=== PATIENT | female | born 1970 | race Caucasian/White ===

== ENCOUNTER 2019-03-24 13:27 | Inpatient (IN) | payer BC, SELFPAY ==
--- NOTE | 2019-03-24 13:49 | ADMGEN ---
This patient, Olivia Martinez, was admitted to 2 Medical Room 256-. Patient/family oriented to hospital policies and general routines including ID bracelet, bed and alarms, visiting hours, pain management, procedures, bathroom and other care routines, personal items, smoking policy, room service/diet, and visiting hours. Valuables list has been completed. Information on how to activate the Rapid Response Team has been discussed. Patient/Family are encouraged to report perceived risks to care and to ask questions if they do not understand what they are told or what they should do.
[2019-03-24 14:00] VITALS: BP 100/51; PULSE 90; RESP 16; TEMP 36.2; O2SAT 98
--- NOTE | 2019-03-24 15:00 | PM.IMHP ---
H&P: HPI History of Present Illness Chief complaint: Left 2nd toe osteomyelitis Narrative: Olivia Martinez is a 48 year old female who is being directly admitted to the hospitalist service from the emergency department at [facility] for further treatment of left 2nd toe osteomyelitis. Her medical history is significant for PCOS for which she takes metformin, asthma, bipolar disorder, and chronic pain on long-term opiate therapy. She reports a callus that has been present at the tip of her left 2nd toe for many years, however has become progressively thicker and harder. Because of this, 2 weeks ago she attempted to remove the callus by picking at it and using toenail clippers. Apparently the wound bled quite a bit and developed a fluid-filled blister within a week's time. She has popped said blister on 3 occasions within the last week, and was able to express blood and purulence drainage. She has been washing the area and putting bacitracin on it since that time. Erythema and edema developed several days ago, and she was seen by her primary care provider who started her on Bactrim. She took 2 doses yesterday, but became concerned today when this swelling and erythema began to progress and thus she presented to the outside hospital emergency department. Imaging revealed changes of osteomyelitis at the tuft of the left 2nd toe. At the time my evaluation, she describes a severe throbbing pain at the site, rated 7/10. She had a temperature of nearly 101? 2 nights ago, but none since that time. Her appetite has been good and she denies nausea and vomiting. She had 4 loose stools over the past 2 days, which she states was prior to her starting the antibiotic. She has no history of MRSA or other drug resistant organism. Review of Systems Review of Systems: Narrative: Twelve systems were reviewed with pertinent positives and negatives as per HPI. No recent cold or flu symptoms. No chest pain or shortness of breath. Asthma is pretty well controlled. No recent issues with regards to that. No dysuria. Except as documented, all other systems were reviewed and are negative. [facility] Past Medical History Medical History (Updated 03/24/19 @ 19:46 by Morelia Borrego PA-C) Arthritis Asthma Bipolar 1 disorder Dyslipidemia Fibromyalgia PCOD (polycystic ovarian disease) Vitamin D deficiency Surgical History Surgical History (Updated 03/24/19 @ 19:40 by Morelia Borrego PA-C) History of appendectomy History of D&C After a miscarriage. Hx of knee surgery Bilateral knee arthroscopy. Family History Family History Mother Depression High cholesterol Hypertension Diabetes mellitus Father Depression High cholesterol Skin cancer Cerebrovascular accident Hypertension Sibling Lung cancer Social History Social History (Updated 03/24/19 @ 19:41 by Morelia Borrego PA-C) Social History: The patient lives in [place] with her ex-. They have recently gotten re-engaged. 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 she designates Jose Angel Martinez, as her surrogate decision maker and she wishes to be a full code. She has smoked off and on for many years, up to a pack a day. She denies alcohol and drug abuse. Smoking packs per day: 1 Smoking cigarettes per day: 20.0 Smoking status: Current every day smoker Tobacco type: cigarettes Alcohol intake: never Substance use: never Gender identity (if verbalized by the patient): Female Spiritual care concerns: No Agree to blood products: Yes Meds Home Medications and Allergies Home Medications Medication Instructions Recorded Confirmed Type albuterol sulfate 90 mcg INHALATION PRN PRN 03/24/19 03/24/19 History amitriptyline 75 mg PO HS 03/24/19 03/24/19 History duloxetine 60 mg PO BID 03/24/19 03/24/19 History ergocalciferol (vitamin D2) 1,250 mcg WEEKLY 03/24/19 03/24/19 History fluticaso
[2019-03-24 15:29] LABS: Lactic Acid Reflex 2.2 mmol/L (0.7-2.1)
[2019-03-24] MEDS: SODIUM CHLORIDE 0.9% IV 1,000 ML 100 ML IV CONT (15:42)
[2019-03-24 15:51] VITALS: BMI 44.8
[2019-03-24] MEDS: TOPIRAMATE 100 MG TABLET PO (16:45)
[2019-03-24] MEDS: DULOXETINE 60 MG CAPSULE.DR PO (16:45)
[2019-03-24 16:51] LABS: Hemoglobin A1C 5.4 % (<5.7)
--- NOTE | 2019-03-24 17:58 | PM.CNGS ---
Assessment and Plan Assessment and plan (1) Osteomyelitis of second toe of left foot: Code(s): M86.9 - Osteomyelitis, unspecified Status: Acute Assessment and Plan: Patient appears to have evidence of a toe infection with possible underlying osteomyelitis. She has been started on broad-spectrum IV antibiotics. We will continue to watch the toe for any signs of further ischemia or necrosis. She may eventually require 2nd toe amputation if this is not improving. Will recommend elevation of her left foot while in bed, and decreasing pressure to that area while walking. History of Present Illness Consult details Consult date: 03/24/19 Narrative: This is a 48-year-old woman who presented to [facility] this morning with complaints of a left toe wound. She has been complaining of worsening redness and pain to her left 2nd toe for the past 2 weeks. She had seen PCP 03/15 and was prescribed antibiotics, but did not start taking until yesterday. She denies any history of diabetes. She denies any history of peripheral vascular disease. She does state that she dropped a can on her toe about 2 years ago but does not know of this would be related to that. Review of Systems Review of Systems: All systems reviewed & are unremarkable except as noted in HPI and below Eyes: Eyes: Denies change in vision ENT: Denies hearing loss, Denies neck pain and Denies sore throat Cardiovascular: Cardiovascular: Denies chest pain and Denies dyspnea Respiratory: Respiratory: Denies cough, Denies dyspnea and Denies wheezing Genitourinary: Genitourinary: Denies hematuria and Denies dysuria Musculoskeletal: Musculoskeletal: Denies arthralgias, Denies joint swelling and Denies neck pain Integumentary/Breasts: Skin/Breast: Reports as per HPI Allergic/Immunologic: Allergic/Immunologic: Denies wheezing [facility] Past Medical History Medical History Arthritis Asthma Bipolar 1 disorder Dyslipidemia Fibromyalgia PCOD (polycystic ovarian disease) Surgical History Surgical History History of appendectomy History of D&C Hx of knee surgery Family History Family History Mother Depression High cholesterol Hypertension Diabetes mellitus Father Depression High cholesterol Skin cancer Cerebrovascular accident Hypertension Sibling Lung cancer Social History Social History Smoking packs per day: 1 Smoking cigarettes per day: 20.0 Smoking status: Current every day smoker Tobacco type: cigarettes Alcohol intake: never Substance use: never Gender identity (if verbalized by the patient): Female Spiritual care concerns: No Agree to blood products: Yes Meds Home Medications and Allergies Home Medications Medication Instructions Recorded Confirmed Type albuterol sulfate 90 mcg INHALATION PRN PRN 03/24/19 03/24/19 History amitriptyline 75 mg PO HS 03/24/19 03/24/19 History duloxetine 60 mg PO BID 03/24/19 03/24/19 History ergocalciferol (vitamin D2) 1,250 mcg WEEKLY 03/24/19 03/24/19 History fluticasone propionate 50 spray INTRANASAL DAILY PRN 03/24/19 03/24/19 History hydrocodone-acetaminophen 1 tablet PO BID PRN 03/24/19 03/24/19 History levothyroxine 150 mcg PO DAILY 03/24/19 03/24/19 History metformin 1,000 mg BID 03/24/19 03/24/19 History sulfamethoxazole-trimethoprim 800 tablet PO BID 03/24/19 03/24/19 History topiramate 100 mg PO BID 03/24/19 03/24/19 History Allergies Allergy/AdvReac Type Severity Reaction Status Date / Time NSAIDS (Non-Steroidal Allergy Intermediate Verified 06/29/12 15:26 Anti-Inflamma Vital Signs Vital Signs - 24 hr 03/24/19 14:00 Temperature 36.2 C L Pulse Rate 90 Respiratory Rate 16 Blood Pressure 100/51 L Pulse Oximetry 98
[2019-03-24 18:16] LABS: Reflex Lactic Acid Yes or No Add Lactic
[2019-03-24 19:06] LABS: Lactic Acid 1.6 mmol/L (0.7-2.1)
[2019-03-24] MEDS: MORPHINE SULFATE 2 MG/ML INJ IV PUSH (20:28)
[2019-03-24] MEDS: AMITRIPTYLINE HCL 25 MG TABLET 75 MG PO (20:29)
[2019-03-24 22:00] VITALS: BP 116/81; PULSE 82; RESP 16; TEMP 36.1; O2SAT 100
[2019-03-25] MEDS: SODIUM CHLORIDE 0.9% IV 1,000 ML 100 ML IV CONT (03:15)
[2019-03-25] MEDS: LEVOTHYROXINE SODIUM 150 MCG TABLET PO (05:39)
[2019-03-25 05:54] VITALS: BP 106/56; PULSE 83; RESP 16; TEMP 36.1; O2SAT 100
[2019-03-25 06:50] LABS: Hematocrit 38.7 % (37.0-47.0); Hemoglobin 12.1 g/dL (12.0-15.0); Mean Corpuscular HGB Conc 31.3 g/dl (32-36); Mean Corpuscular Hemoglobin 31.4 pg (26-34); Mean Corpuscular Volume 100.5 fl (80-100); Mean Platelet Volume 9.6 fl (7.4-10.4); Platelet Count Result 326 k/mm3 (150-375); Red Blood Count 3.85 M/mm3 (4.2-5.4); Red Cell Distribution Width 13.4 % (11.5-14.5); White Blood Count 10.8 K/mm3 (4.5-10.0)
[2019-03-25 07:06] LABS: Blood Urea Nitrogen 10 mg/dL (7-17); Calcium 8.9 mg/dL (8.4-10.2); Carbon Dioxide 23 mmol/L (22-30); Chloride 105 mmol/L (98-107); Estimated CRCL calculation 78 ml/min; Estimated Glomerular Filt Rate 59; Glucose 93 mg/dL (65-105); Potassium 4.2 mmol/L (3.4-5.0); Sodium 138 mmol/L (137-145)
[2019-03-25] MEDS: TOPIRAMATE 100 MG TABLET PO ×2 (09:08→17:44)
[2019-03-25] MEDS: DULOXETINE 60 MG CAPSULE.DR PO ×2 (09:08→17:44)
--- NOTE | 2019-03-25 11:14 | PM.IMPN ---
Progress Note: A&P Assessment and Plan (1) Sepsis: Code(s): A41.9 - Sepsis, unspecified organism Status: Acute Assessment and Plan: -----Resolved. Present on admission and supported by leukocytosis and lactic acidosis in the setting of infection. Likely d/t osteomyelitits. Blood cultures are pending. vitals stable. Will stop IV fluids as pt is eating and drinking well. (2) Osteomyelitis of second toe of left foot: Code(s): M86.9 - Osteomyelitis, unspecified Status: Acute Assessment and Plan: ------Continue empiric vancomycin and ceftriaxone. Await further recs from sx. Will consult Dr. Paris (3) Cellulitis of second toe of left foot: Code(s): L03.032 - Cellulitis of left toe Status: Acute Assessment and Plan: ------Continue vancomycin and ceftriaxone as above. (4) Asthma: Code(s): J45.909 - Unspecified asthma, uncomplicated Status: Acute Assessment and Plan: -----No acute issues and well controlled Time Spent With Patient Time with patient: 25 - 35 minutes Subjective Date/time seen: 03/25/19 11:14 Interval history: Pt is a 48-year-old female here for osteomyelitis. Patient was seen today and states her toe looks about the same but did have some mild bleeding to it overnight. She says that she is not currently having any fevers, chills, nausea or vomiting. She had many questions about the plan of care which I deferred to surgery team. She is eating and drinking well and denies chest pain and shortness of breath Review of Systems Review of Systems: All systems reviewed & are unremarkable except as noted in HPI and below Exam Narrative: Exam Narrative: General: Well developed well nourished patient resting comfortably in bed in NAD HEENT: normocephalic Neck: supple Neuro: Alert and oriented x4 CV:RRR Resp:CTA Abd: Soft, non distended. No pain to palpation. Positive bowel sounds Extremities: Left foot 2nd phalanx has a small eschar callus at the distal tip of the toe. very scant evidence of bleeding. Eryethema down to the middle of the toe. Objective Data Vital Signs Vital Signs: Vital Signs - 24 hr 03/24/19 14:00 03/24/19 22:00 03/25/19 05:54 Temperature 97.1 F L 96.9 F L 96.9 F L Pulse Rate 90 82 83 Respiratory Rate 16 16 16 Blood Pressure 100/51 L 116/81 106/56 L Pulse Oximetry 98 100 100 Intake/Output Intake/Output: Intake & Output 03/22/19 03/23/19 03/24/19 03/25/19 23:59 23:59 23:59 23:59 Intake Total 690 2299 Output Total 0 2100 Balance 690 199 Meds/Results Medications: Active Medications Generic Name Dose Route Start Last Admin Trade Name Freq PRN Reason Stop Dose Admin Acetaminophen 650 mg 03/24/19 15:38 Tylenol Tablet PO Q6H PRN Mild Pain (1-3) or Fever Hydrocodone Bitart/Acetaminophen 1 tab 03/24/19 15:39 03/25/19 09:07 [place] 7.5-325 Mg PO 1 tab BID PRN Administration Pain 4-10 Albuterol 1 puff 03/24/19 14:34 Proventil Hfa INHALATION PRN PRN Wheezing Amitriptyline HCl 75 mg 03/24/19 21:00 03/24/19 20:29 Elavil PO 75 mg HS BUSTER Administration Duloxetine HCl 60 mg 03/24/19 17:00 03/25/19 09:08 Cymbalta PO 60 mg BID BUSTER Administration Fluticasone Propionate 1 spray 03/24/19 14:50 Flonase 0.05% Nasal [place] NASAL DAILY PRN Allergy Symptoms Ceftriaxone Sodium 2 gm in 100 mls @ 200 mls/hr 03/25/19 12:00 Rocephin 2 Gm/D5w 100 Ml IVPB Q24H BUSTER Sodium Chloride 1,000 mls @ 100 mls/hr 03/24/19 14:50 03/25/19 05:41 Normal Saline Iv IV CONT 100 mls/hr .Q10H BUSTER Infusion Vancomycin HCl 1,750 mg in 500 mls @ 250 mls/hr 03/25/19 08:00 03/25/19 09:09 Vancomycin 1,750 Mg/D5w 500 Ml IVPB 250 mls/hr Q18H BUSTER Administration Levothyroxine Sodium 150 mcg 03/25/19 06:30 03/25/19 05:39 Synthroid PO 150 mcg DAILY@0630 BUSTER Administration Morphine Sulf
[2019-03-25] MEDS: ACETAMINOPHEN 325 MG TABLET 650 MG PO (12:32)
[2019-03-25 14:00] VITALS: BP 126/65; PULSE 73; RESP 14; TEMP 36.4; O2SAT 100
--- NOTE | 2019-03-25 14:54 | PM.PNGS ---
Progress Note: A&P Assessment and Plan (1) Cellulitis of second toe of left foot: Code(s): L03.032 - Cellulitis of left toe Status: Acute Assessment and Plan: Will begin applying silver gel to nail bed of 2nd toe to help with infection. Overall erythema and swelling has improved. She may need superficial debridement if drainage and redness persist. Subjective Subjective Date/Time Seen: 03/25/19 14:54 Still having some pain in her toe. No fevers. Redness improved. Exam Extrem: Ankle/foot/toe images: 1. Erythema improved. Scant bloody drainage at nail bed. Objective Data Vital Signs Vital Signs: Vital Signs - 24 hr 03/24/19 22:00 03/25/19 05:54 Temperature 36.1 C L 36.1 C L Pulse Rate 82 83 Respiratory Rate 16 16 Blood Pressure 116/81 106/56 L Pulse Oximetry 100 100 Intake/Output Intake/Output: Intake & Output 03/22/19 03/23/19 03/24/19 03/25/19 23:59 23:59 23:59 23:59 Intake Total 690 2799 Output Total 0 2100 Balance 690 699 Meds/Results Medications: Active Medications Generic Name Dose Route Start Last Admin Trade Name Freq PRN Reason Stop Dose Admin Acetaminophen 650 mg 03/24/19 15:38 03/25/19 12:32 Tylenol Tablet PO 650 mg Q6H PRN Administration Mild Pain (1-3) or Fever Hydrocodone Bitart/Acetaminophen 1 tab 03/24/19 15:39 03/25/19 09:07 [place] 7.5-325 Mg PO 1 tab BID PRN Administration Pain 4-10 Albuterol 1 puff 03/24/19 14:34 Proventil Hfa INHALATION PRN PRN Wheezing Amitriptyline HCl 75 mg 03/24/19 21:00 03/24/19 20:29 Elavil PO 75 mg HS BUSTER Administration Duloxetine HCl 60 mg 03/24/19 17:00 03/25/19 09:08 Cymbalta PO 60 mg BID BUSTER Administration Fluticasone Propionate 1 spray 03/24/19 14:50 Flonase 0.05% Nasal [place] NASAL DAILY PRN Allergy Symptoms Ceftriaxone Sodium 2 gm in 100 mls @ 200 mls/hr 03/25/19 12:00 03/25/19 12:27 Rocephin 2 Gm/D5w 100 Ml IVPB 200 mls/hr Q24H BUSTER Administration Vancomycin HCl 1,750 mg in 500 mls @ 250 mls/hr 03/25/19 08:00 03/25/19 11:49 Vancomycin 1,750 Mg/D5w 500 Ml IVPB Infused Q18H BUSTER Infusion Levothyroxine Sodium 150 mcg 03/25/19 06:30 03/25/19 05:39 Synthroid PO 150 mcg DAILY@0630 [facility] Administration Morphine Sulfate 2 mg 03/24/19 15:39 03/24/19 20:28 Morphine Sulfate Inj IV PUSH 2 mg Q4H PRN Administration Breakthrough 7-10 AFTER norco Silver Nitrate 1 applic 03/25/19 14:55 Silvergel TOPICAL Q24H [facility] Topiramate 100 mg 03/24/19 17:00 03/25/19 09:08 Topamax PO 100 mg BID BUSTER Administration Labs Labs: Laboratory Results - last 24 hr 03/24/19 03/24/19 03/24/19 15:13 16:31 18:42 WBC RBC Hgb Hct MCV MCH MCHC RDW Plt Count MPV Sodium Potassium Chloride Carbon Dioxide BUN Creatinine Estim Creat Clear Calc Estimated GFR Glucose Hemoglobin A1c 5.4 Lactic Acid 2.2 H 1.6 Calcium 03/25/19 03/25/19 06:25 06:25 WBC 10.8 H RBC 3.85 L Hgb 12.1 Hct 38.7 MCV 100.5 H MCH 31.4 MCHC 31.3 L RDW 13.4 Plt Count 326 MPV 9.6 Sodium 138 Potassium 4.2 Chloride 105 Carbon Dioxide 23 BUN 10 Creatinine 1.00 Estim Creat Clear Calc 78 Estimated GFR 59 Glucose 93 Hemoglobin A1c Lactic Acid Calcium 8.9 Quality VTE Prophylaxis VTE prophylaxis: mechanical ordered
[2019-03-25] MEDS: SILVERGEL (ELTA) 45 ML 1 APPLIC TOPICAL (17:44)
[2019-03-25] MEDS: AMITRIPTYLINE HCL 25 MG TABLET 75 MG PO (20:59)
[2019-03-25] MEDS: MORPHINE SULFATE 2 MG/ML INJ IV PUSH (21:02)
[2019-03-25 21:10] VITALS: BP 116/69; PULSE 72; RESP 16; TEMP 36.1; O2SAT 98
[2019-03-26] MEDS: LEVOTHYROXINE SODIUM 150 MCG TABLET PO (05:52)
[2019-03-26 06:00] VITALS: BP 108/61; PULSE 74; RESP 16; TEMP 36.1; O2SAT 100
--- NOTE | 2019-03-26 08:15 | WPDINFPN2 ---
Progress Note: A&P Assessment and Plan (1) Osteomyelitis of second toe of left foot: Code(s): M86.9 - Osteomyelitis, unspecified Status: Acute Assessment and Plan: L 2nd toe acute OM REC Ctx #3. I think her overall health is best served by distal phalanx amputation without post op antibiotics, but I emphasized that only her surgeon can make that final recommendation. If no surgery, then 4 weeks IV therapy (no guarantee of cure). Subjective Date/time seen: 03/26/19 08:15 Objective Data Vital Signs Vital Signs: Vital Signs - 24 hr 03/25/19 14:00 03/25/19 21:10 03/26/19 06:00 Temperature 36.4 C 36.1 C L 36.1 C L Pulse Rate 73 72 74 Respiratory Rate 14 16 16 Blood Pressure 126/65 116/69 108/61 Pulse Oximetry 100 98 100 Intake/Output Intake/Output: Intake & Output 03/23/19 03/24/19 03/25/19 03/26/19 23:59 23:59 23:59 23:59 Intake Total 690 3949 550 Output Total 0 2850 350 Balance 690 1099 200 Meds/Results Medications: Active Medications Generic Name Dose Route Start Last Admin Trade Name Freq PRN Reason Stop Dose Admin Acetaminophen 650 mg 03/24/19 15:38 03/25/19 12:32 Tylenol Tablet PO 650 mg Q6H PRN Administration Mild Pain (1-3) or Fever Hydrocodone Bitart/Acetaminophen 1 tab 03/24/19 15:39 03/26/19 05:54 [place] 7.5-325 Mg PO 1 tab BID PRN Administration Pain 4-10 Albuterol 1 puff 03/24/19 14:34 Proventil Hfa INHALATION PRN PRN Wheezing Amitriptyline HCl 75 mg 03/24/19 21:00 03/25/19 20:59 Elavil PO 75 mg HS BUSTER Administration Duloxetine HCl 60 mg 03/24/19 17:00 03/25/19 17:44 Cymbalta PO 60 mg BID BUSTER Administration Fluticasone Propionate 1 spray 03/24/19 14:50 Flonase 0.05% Nasal [place] NASAL DAILY PRN Allergy Symptoms Ceftriaxone Sodium 2 gm in 100 mls @ 200 mls/hr 03/25/19 12:00 03/25/19 12:27 Rocephin 2 Gm/D5w 100 Ml IVPB 200 mls/hr Q24H BUSTER Administration Levothyroxine Sodium 150 mcg 03/25/19 06:30 03/26/19 05:52 Synthroid PO 150 mcg DAILY@0630 BUSTER Administration Morphine Sulfate 2 mg 03/24/19 15:39 03/25/19 21:02 Morphine Sulfate Inj IV PUSH 2 mg Q4H PRN Administration Breakthrough 7-10 AFTER norco Silver Nitrate 1 applic 03/25/19 14:55 03/25/19 17:44 Silvergel TOPICAL 1 applic Q24H BUSTER Administration Topiramate 100 mg 03/24/19 17:00 03/25/19 17:44 Topamax PO 100 mg BID BUSTER Administration
[2019-03-26] MEDS: TOPIRAMATE 100 MG TABLET PO ×2 (08:24→17:33)
[2019-03-26] MEDS: DULOXETINE 60 MG CAPSULE.DR PO ×2 (08:24→17:32)
--- NOTE | 2019-03-26 09:25 | PM.IMPN ---
Progress Note: A&P Assessment and Plan (1) Sepsis: Code(s): A41.9 - Sepsis, unspecified organism Status: Acute Assessment and Plan: -----Resolved. Present on admission and supported by leukocytosis and lactic acidosis in the setting of infection. Likely d/t osteomyelitits. Blood cultures are NGTD. vitals stable. (2) Osteomyelitis of second toe of left foot: Code(s): M86.9 - Osteomyelitis, unspecified Status: Acute Assessment and Plan: ------Continue empiric vancomycin and ceftriaxone. Await further recs from sx. (3) Cellulitis of second toe of left foot: Code(s): L03.032 - Cellulitis of left toe Status: Acute Assessment and Plan: ------Continue vancomycin and ceftriaxone as above. (4) Asthma: Code(s): J45.909 - Unspecified asthma, uncomplicated Status: Acute Assessment and Plan: -----No acute issues and well controlled Subjective Date/time seen: 03/26/19 09:25 Interval history: Pt is a 48-year-old female here for osteomyelitis. Patient was seen today and states her toe is hurting a 7/10 but is getting better with the pain meds she took prior to my exam. Overall she is feeling good. Pt denies CP, SOB, fevers, n/v, or chills. Exam Narrative: Exam Narrative: General: Well developed well nourished patient resting comfortably in bed in NAD HEENT: normocephalic Neck: supple Neuro: Alert and oriented x4 CV:RRR Resp:CTA Abd: Soft, non distended. No pain to palpation. Positive bowel sounds Extremities: Left foot 2nd phalanx has a small eschar callus at the distal tip of the toe. Eryethema down to the middle of the toe. Objective Data Vital Signs Vital Signs: Vital Signs - 24 hr 03/25/19 14:00 03/25/19 21:10 03/26/19 06:00 Temperature 97.6 F 96.9 F L 96.9 F L Pulse Rate 73 72 74 Respiratory Rate 14 16 16 Blood Pressure 126/65 116/69 108/61 Pulse Oximetry 100 98 100 Intake/Output Intake/Output: Intake & Output 03/23/19 03/24/19 03/25/1903/26/20 23:59 23:59 23:59 23:59 Intake Total 690 3949 910 Output Total 0 2850 350 Balance 690 1099 560 Meds/Results Medications: Active Medications Generic Name Dose Route Start Last Admin Trade Name Freq PRN Reason Stop Dose Admin Acetaminophen 650 mg 03/24/19 15:38 03/25/19 12:32 Tylenol Tablet PO 650 mg Q6H PRN Administration Mild Pain (1-3) or Fever Hydrocodone Bitart/Acetaminophen 1 tab 03/24/19 15:39 03/26/19 05:54 [place] 7.5-325 Mg PO 1 tab BID PRN Administration Pain 4-10 Albuterol 1 puff 03/24/19 14:34 Proventil Hfa INHALATION PRN PRN Wheezing Amitriptyline HCl 75 mg 03/24/19 21:00 03/25/19 20:59 Elavil PO 75 mg HS BUSTER Administration Duloxetine HCl 60 mg 03/24/19 17:00 03/26/19 08:24 Cymbalta PO 60 mg BID BUSTER Administration Fluticasone Propionate 1 spray 03/24/19 14:50 Flonase 0.05% Nasal [place] NASAL DAILY PRN Allergy Symptoms Ceftriaxone Sodium 2 gm in 100 mls @ 200 mls/hr 03/25/19 12:00 03/25/19 12:27 Rocephin 2 Gm/D5w 100 Ml IVPB 200 mls/hr Q24H BUSTER Administration Levothyroxine Sodium 150 mcg 03/25/19 06:30 03/26/19 05:52 Synthroid PO 150 mcg DAILY@0630 BUSTER Administration Morphine Sulfate 2 mg 03/24/19 15:39 03/25/19 21:02 Morphine Sulfate Inj IV PUSH 2 mg Q4H PRN Administration [place] 7-10 AFTER norco Silver Nitrate 1 applic 03/25/19 14:55 03/25/19 17:44 Silvergel TOPICAL 1 applic Q24H BUSTER Administration Topiramate 100 mg 03/24/19 17:00 03/26/19 08:24 Topamax PO 100 mg BID BUSTER Administration Quality VTE Prophylaxis VTE prophylaxis: mechanical ordered
[2019-03-26 09:54] LABS: Blood Urea Nitrogen 10 mg/dL (7-17); Calcium 9.3 mg/dL (8.4-10.2); Carbon Dioxide 23 mmol/L (22-30); Chloride 103 mmol/L (98-107); Estimated CRCL calculation 86 ml/min; Estimated Glomerular Filt Rate > 60; Glucose 153 mg/dL (65-105); Potassium 3.4 mmol/L (3.4-5.0); Sodium 137 mmol/L (137-145)
[2019-03-26 11:01] LABS: Folic Acid 10.7 ng/mL (2.76->20)
--- NOTE | 2019-03-26 11:43 | PM.PNGS ---
Progress Note: A&P Assessment and Plan (1) Osteomyelitis of second toe of left foot: Code(s): M86.9 - Osteomyelitis, unspecified Status: Acute Assessment and Plan: Patient clinically appears to be improving, but still has some tenderness and erythema at the tip of her toe. She would benefit from podiatry evaluation for possible debridement or partial toe amputation. Will continue silver gel dressing changes daily and ask podiatry to evaluate patient Wednesday morning. (2) Cellulitis of second toe of left foot: Code(s): L03.032 - Cellulitis of left toe Status: Acute Subjective Subjective Date/Time Seen: 03/26/19 11:43 Patient is still having pain had tip of toe when palpated. Redness improving. Denies fevers or pain extending up foot proximally. Exam Extrem: Ankle/foot/toe images: 1. Erythema at tip of 2nd toe. Minimal bloody drainage. Objective Data Vital Signs Vital Signs: Vital Signs - 24 hr 03/25/19 14:00 03/25/19 21:10 03/26/19 06:00 Temperature 36.4 C 36.1 C L 36.1 C L Pulse Rate 73 72 74 Respiratory Rate 14 16 16 Blood Pressure 126/65 116/69 108/61 Pulse Oximetry 100 98 100 Intake/Output Intake/Output: Intake & Output 03/23/19 03/24/19 03/25/19 03/26/19 23:59 23:59 23:59 23:59 Intake Total 690 3949 910 Output Total 0 2850 350 Balance 690 1099 560 Meds/Results Medications: Active Medications Generic Name Dose Route Start Last Admin Trade Name Freq PRN Reason Stop Dose Admin Acetaminophen 650 mg 03/24/19 15:38 03/25/19 12:32 Tylenol Tablet PO 650 mg Q6H PRN Administration Mild Pain (1-3) or Fever Hydrocodone Bitart/Acetaminophen 1 tab 03/24/19 15:39 03/26/19 05:54 [place] 7.5-325 Mg PO 1 tab BID PRN Administration Pain 4-10 Albuterol 1 puff 03/24/19 14:34 Proventil Hfa INHALATION PRN PRN Wheezing Amitriptyline HCl 75 mg 03/24/19 21:00 03/25/19 20:59 Elavil PO 75 mg HS BUSTER Administration Duloxetine HCl 60 mg 03/24/19 17:00 03/26/19 08:24 Cymbalta PO 60 mg BID BUSTER Administration Fluticasone Propionate 1 spray 03/24/19 14:50 Flonase 0.05% Nasal [place] NASAL DAILY PRN Allergy Symptoms Ceftriaxone Sodium 2 gm in 100 mls @ 200 mls/hr 03/25/19 12:00 03/25/19 12:27 Rocephin 2 Gm/D5w 100 Ml IVPB 200 mls/hr Q24H BUSTER Administration Levothyroxine Sodium 150 mcg 03/25/19 06:30 03/26/19 05:52 Synthroid PO 150 mcg DAILY@0630 [facility] Administration Morphine Sulfate 2 mg 03/24/19 15:39 03/25/19 21:02 Morphine Sulfate Inj IV PUSH 2 mg Q4H PRN Administration [place] 7-10 AFTER norco Silver Nitrate 1 applic 03/25/19 14:55 03/25/19 17:44 Silvergel TOPICAL 1 applic Q24H BUSTER Administration Topiramate 100 mg 03/24/19 17:00 03/26/19 08:24 Topamax PO 100 mg BID BUSTER Administration Labs Labs: Laboratory Results - last 24 hr 03/26/19 09:33 Sodium 137 Potassium 3.4 Chloride 103 Carbon Dioxide 23 BUN 10 Creatinine 0.90 Estim Creat Clear Calc 86 Estimated GFR > 60 Glucose 153 H Calcium 9.3 Vitamin B12 245.0 Folate 10.7 Quality VTE Prophylaxis VTE prophylaxis: mechanical ordered
[2019-03-26] MEDS: POTASSIUM CHLORIDE 20 MEQ TABLET 40 MEQ PO (12:18)
[2019-03-26 14:00] VITALS: BP 113/56; PULSE 81; RESP 16; TEMP 36.4; O2SAT 98
[2019-03-26] MEDS: SILVERGEL (ELTA) 45 ML 1 APPLIC TOPICAL (14:49)
[2019-03-26] MEDS: CYANOCOBALAMIN INJ 1,000 MCG/ML VIAL 1000 MCG IM (18:33)
[2019-03-26 20:00] VITALS: PULSE 81; RESP 16; O2SAT 98
[2019-03-26] MEDS: AMITRIPTYLINE HCL 25 MG TABLET 75 MG PO (20:28)
[2019-03-26 22:52] VITALS: BP 138/77; PULSE 77; RESP 16; TEMP 36.8; O2SAT 99
[2019-03-27] MEDS: LEVOTHYROXINE SODIUM 150 MCG TABLET PO (06:00)
[2019-03-27] MEDS: MORPHINE SULFATE 2 MG/ML INJ IV PUSH ×2 (06:05→21:59)
[2019-03-27 06:11] VITALS: BP 124/67; PULSE 87; RESP 18; TEMP 37; O2SAT 99
[2019-03-27 06:29] LABS: Hematocrit 41.1 % (37.0-47.0); Hemoglobin 13.1 g/dL (12.0-15.0); Mean Corpuscular HGB Conc 31.9 g/dl (32-36); Mean Corpuscular Hemoglobin 31.7 pg (26-34); Mean Corpuscular Volume 99.5 fl (80-100); Mean Platelet Volume 9.6 fl (7.4-10.4); Platelet Count Result 370 k/mm3 (150-375); Red Blood Count 4.13 M/mm3 (4.2-5.4); Red Cell Distribution Width 13.3 % (11.5-14.5); White Blood Count 11.2 K/mm3 (4.5-10.0)
[2019-03-27 06:39] LABS: Blood Urea Nitrogen 11 mg/dL (7-17); CRP 0.8 mg/dL (<1.0); Calcium 9.6 mg/dL (8.4-10.2); Carbon Dioxide 21 mmol/L (22-30); Chloride 108 mmol/L (98-107); Estimated CRCL calculation 96 ml/min; Estimated Glomerular Filt Rate > 60; Glucose 83 mg/dL (65-105); Sodium 139 mmol/L (137-145)
--- NOTE | 2019-03-27 06:54 | CONS_ITS ---
DATE OF CONSULTATION: 03/26/2019 REASON FOR CONSULTATION: Left second toe osteomyelitis. 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 She dropped an object on her toe about 2 years ago and since then has had callus over the tip of the toe, on approximately three occasions she has peeled the callus off, about 2 weeks prior to admission she developed new onset of redness of the second toe, drainage and underlying ulcer below the callus. She saw her primary care physician, who gave her trimethoprim sulfa, which had no effect on her illness. She then developed redness over the dorsum of the foot extending into the anterior ankle. She presented to an outside emergency room, and then was transferred here. She has been given ceftriaxone, vancomycin day 3, and consultation requested. No previous vascular compromise surgery, major trauma, prior x-rays. She felt warm at home, but never took her temperature. No rigors or night sweats. ALLERGIES: NONSTEROIDALS EXACERBATE HER ASTHMA. HABITS: One pack per day smoker in the last month intermittent previously. No alcohol. PRESENT MEDICATIONS: No immunosuppressants. PAST MEDICAL HISTORY: Knee surgery, D and C, appendectomy, PCO and thus on the on the metformin, vitamin D deficiency, fibromyalgia, hyperlipidemia, bipolar disorder, asthma, and arthritis. REVIEW OF SYSTEMS: Constitutional, musculoskeletal, skin, respiratory, GI, otherwise negative. FAMILY HISTORY: Not pertinent to her present illness. SOCIAL HISTORY: She does not work outside the home. Lives with her ex-. PHYSICAL EXAMINATION: GENERAL: This is a female, who appears older than her actual age. No acute distress. VITAL SIGNS: T-max 36.9 since arrival, 108/61, 74, 16, 100% room air. SKIN: No generalized rashes. Warm and dry. EENT: Conjunctivae are normal. Oropharynx, oral mucosa normal. NECK: Without meningismus or mass. LUNGS: Clear to auscultation and percussion. CARDIAC: Regular rate and rhythm without murmurs or gallops. Dorsalis pedis and posterior tibial pulses 2+. ABDOMEN: Morbidly obese, nontender, nondistended. EXTREMITIES: She has no erythema over the foot. Her left 2nd toe is erythematous over the middle and distal phalanges. She has an ulcerated callus over the tip of the toe. No purulence. There is minimal discharge on the dressing. Nontender. Remainder of the foot without erythema or warmth, abnormal contour. She has a hammertoe deformity of the second toe. RADIOLOGY: I personally reviewed her toe x-ray, which shows erosion of the distal phalanx. Radiologist interpretation also noted. LABORATORY DATA: Blood cultures are no growth so far. White count 10.8, was about 16 at outside hospital. Hemoglobin 12.1, platelets are 326. Chemistry panel is normal. Hemoglobin A1c 5.4%. CRP 2.6. ASSESSMENT: 1. Acute osteomyelitis left second toe, other explanations for present illness such as gouty arthritis are unlikely. Cutaneous amy are suspected, MRSA is very unlikely. 2. Morbid obesity. 3. Tobacco abuse, I counseled her on tobacco cessation. Recommendations, ceftriaxone monotherapy, day 3. 4. I think her intermediate and long-term health is best served by distal phalanx amputation, but I have emphasized to her that only her surgeon can make that decision after speaking with her. 5. If no operation, then 4 weeks of ceftriaxone once daily anticipated, no guarantee of cure. Thank you very much for asking me to see her. AGUSTIN SIERRA M.D. B[employer]ILY INJURY ADJUSTER BODILY INJURY ADJUSTER D I Job #: [id number]
[2019-03-27] MEDS: CYANOCOBALAMIN 1,000 MCG TABLET 1000 MCG PO (08:15)
[2019-03-27] MEDS: TOPIRAMATE 100 MG TABLET PO ×2 (08:15→16:46)
[2019-03-27] MEDS: DULOXETINE 60 MG CAPSULE.DR PO ×2 (08:15→16:46)
--- NOTE | 2019-03-27 11:44 | WPDINFPN2 ---
Progress Note: A&P Assessment and Plan (1) Osteomyelitis of second toe of left foot: Code(s): M86.9 - Osteomyelitis, unspecified Status: Acute Assessment and Plan: 1. L 2nd toe acute OM. Pain worse but exam without new abnormalities. BCs ngsf 2. PCOS, on metformin, no DM REC Ctx #4, continue. Podiatry to see. Analgesics. I favor distal phalanx amputation. Subjective Date/time seen: 03/27/19 11:44 Interval history: new pain over middle phalanx. No chills, diarrhea, rash Exam Narrative: Exam Narrative: afebrile Const: General: no acute distress Eyes: General: appearance normal, both eyes and all related structures Resp: Effort & Inspection: normal respiratory effort Auscultation: clear to auscultation bilaterally Cardio: Rate: regular rate Rhythm: regular rhythm Heart sounds: no gallops and no murmurs Other: pulses 2+ PT and DP bilaterally GI: Inspection: non-distended GI Palp: Yes Soft to palpation and No Tenderness to palpation present (GI) Skin: General skin exam: normal color and no rashes or lesions noted Extrem: Other: left distal phalanx erythema and edema as before. Middle no abnormalities including no tenderness. Distal tip with crusted ulcer as before. No drainage Objective Data Vital Signs Vital Signs: Vital Signs - 24 hr 03/26/19 14:00 03/26/19 20:00 03/26/19 22:52 Temperature 36.4 C 36.8 C Pulse Rate 81 81 77 Respiratory Rate 16 16 16 Blood Pressure 113/56 L 138/77 Pulse Oximetry 98 98 99 03/27/19 06:11 Temperature 37.0 C Pulse Rate 87 Respiratory Rate 18 Blood Pressure 124/67 Pulse Oximetry 99 Intake/Output Intake/Output: Intake & Output 03/24/19 03/25/19 03/26/19 03/27/19 23:59 23:59 23:59 23:59 Intake Total 690 4049 1920 288 Output Total 0 2850 350 Balance 690 1199 1570 288 Meds/Results Medications: Active Medications Generic Name Dose Route Start Last Admin Trade Name Freq PRN Reason Stop Dose Admin Acetaminophen 650 mg 03/24/19 15:38 03/25/19 12:32 Tylenol Tablet PO 650 mg Q6H PRN Administration Mild Pain (1-3) or Fever Hydrocodone Bitart/Acetaminophen 1 tab 03/24/19 15:39 03/27/19 11:00 [place] 7.5-325 Mg PO 1 tab BID PRN Administration Pain 4-10 Albuterol 1 puff 03/24/19 14:34 Proventil Hfa INHALATION PRN PRN Wheezing Amitriptyline HCl 75 mg 03/24/19 21:00 03/26/19 20:28 Elavil PO 75 mg HS BUSTER Administration Artificial Tears 1 drop 03/26/19 12:25 03/26/19 14:49 Artificial Tears EACH EYE 1 drop QID PRN Administration Dry Eye(s) Cyanocobalamin 1,000 mcg 03/27/19 09:00 03/27/19 08:15 Vitamin B-12 Tab PO 1,000 mcg QAM BUSTER Administration Duloxetine HCl 60 mg 03/24/19 17:00 03/27/19 08:15 Cymbalta PO 60 mg BID BUSTER Administration Fluticasone Propionate 1 spray 03/24/19 14:50 Flonase 0.05% Nasal [place] NASAL DAILY PRN Allergy Symptoms Ceftriaxone Sodium 2 gm in 100 mls @ 200 mls/hr 03/25/19 12:00 03/26/19 12:59 Rocephin 2 Gm/D5w 100 Ml IVPB Infused Q24H BUSTER Infusion Levothyroxine Sodium 150 mcg 03/25/19 06:30 03/27/19 06:00 Synthroid PO 150 mcg DAILY@0630 BUSTER Administration Morphine Sulfate 2 mg 03/24/19 15:39 03/27/19 06:05 Morphine Sulfate Inj IV PUSH 2 mg Q4H PRN Administration Breakthrough 7-10 AFTER norco Silver Nitrate 1 applic 03/25/19 14:55 03/26/19 14:49 Silvergel TOPICAL 1 applic Q24H BUSTER Administration Topiramate 100 mg 03/24/19 17:00 03/27/19 08:15 Topamax PO 100 mg BID BUSTER Administration Labs Labs: Laboratory Results - last 24 hr 03/27/19 03/27/19 05:24 05:24 WBC 11.2 H RBC 4.13 L Hgb 13.1 Hct 41.1 MCV 99.5 MCH 31.7 MCHC 31.9 L RDW 13.3 Plt Count 370 MPV 9.6 Sodium 139 Potassium 4.0 Chloride 108 H Carbon Dioxide 21 L BUN 11 Creatinine 0.80 Estim Creat Clear Calc 96 Estimated GFR > 60 Glu
--- NOTE | 2019-03-27 12:03 | PM.PNGS ---
Progress Note: A&P Assessment and Plan (1) Osteomyelitis of second toe of left foot: Code(s): M86.9 - Osteomyelitis, unspecified Status: Acute Assessment and Plan: Patient clinically appears to be improving, but still has some tenderness and erythema at the tip of her toe. Continue IV antibiotics per ID and local wound care. Consulted Ortho today to evaluate for possible debridement or partial toe amputation. ID's recommendations noted and appreciated. (2) Cellulitis of second toe of left foot: Code(s): L03.032 - Cellulitis of left toe Status: Acute Additional Plan Discussed patient's case and plan of care with Dr. Osman. Subjective Subjective Date/Time Seen: 03/27/19 11:20 Patient reports: still having pain and afebrile Interval history: Patient seen and examined. Still having pain in her left 2nd toe and feels the pain is moving proximally down her toe. Pain radiates into her midfoot. Afebrile and WBC 11,000 this morning. No other complaints at this time. Review of Systems Review of Systems: All systems reviewed & are unremarkable except as noted in HPI and below Exam Const: General: alert; No acute distress Orientation/consciousness: patient oriented x3 Extrem: General: capillary refill normal Ankle/foot/toe images: 1. Small dry eschar or scab over the distal tip of the second toe. No drainage noted from this area today. Surrounding erythema extending proximally down the toe but does not extend to the foot. Tenderness of entire toe. Other: Strong DP and PT pulses. Good capillary refill. Objective Data Vital Signs Vital Signs: Vital Signs - 24 hr 03/26/19 14:00 03/26/19 20:00 03/26/19 22:52 Temperature 36.4 C 36.8 C Pulse Rate 81 81 77 Respiratory Rate 16 16 16 Blood Pressure 113/56 L 138/77 Pulse Oximetry 98 98 99 03/27/19 06:11 Temperature 37.0 C Pulse Rate 87 Respiratory Rate 18 Blood Pressure 124/67 Pulse Oximetry 99 Intake/Output Intake/Output: Intake & Output 03/24/19 03/25/19 03/26/19 03/27/19 23:59 23:59 23:59 23:59 Intake Total 690 4049 1920 288 Output Total 0 2850 350 Balance 690 1199 1570 288 Meds/Results Medications: Active Medications Generic Name Dose Route Start Last Admin Trade Name Freq PRN Reason Stop Dose Admin Acetaminophen 650 mg 03/24/19 15:38 03/25/19 12:32 Tylenol Tablet PO 650 mg Q6H PRN Administration Mild Pain (1-3) or Fever Hydrocodone Bitart/Acetaminophen 1 tab 03/27/19 12:00 [place] 5-325 Mg PO Q6H PRN Pain Rated 4-6 Albuterol 1 puff 03/24/19 14:34 Proventil Hfa INHALATION PRN PRN Wheezing Amitriptyline HCl 75 mg 03/24/19 21:00 03/26/19 20:28 Elavil PO 75 mg HS BUSTER Administration Artificial Tears 1 drop 03/26/19 12:25 03/26/19 14:49 Artificial Tears EACH EYE 1 drop QID PRN Administration Dry Eye(s) Cyanocobalamin 1,000 mcg 03/27/19 09:00 03/27/19 08:15 Vitamin B-12 Tab PO 1,000 mcg QAM BUSTER Administration Duloxetine HCl 60 mg 03/24/19 17:00 03/27/19 08:15 Cymbalta PO 60 mg BID BUSTER Administration Fluticasone Propionate 1 spray 03/24/19 14:50 Flonase 0.05% Nasal [place] NASAL DAILY PRN Allergy Symptoms Ceftriaxone Sodium 2 gm in 100 mls @ 200 mls/hr 03/25/19 12:00 03/26/19 12:59 Rocephin 2 Gm/D5w 100 Ml IVPB Infused Q24H BUSTER Infusion Levothyroxine Sodium 150 mcg 03/25/19 06:30 03/27/19 06:00 Synthroid PO 150 mcg DAILY@0630 BUSTER Administration Morphine Sulfate 2 mg 03/24/19 15:39 03/27/19 06:05 Morphine Sulfate Inj IV PUSH 2 mg Q4H PRN Administration Breakthrough 7-10 AFTER norco Silver Nitrate 1 applic 03/25/19 14:55 03/26/19 14:49 Silvergel TOPICAL 1 applic Q24H BUSTER Administration Topiramate 100 mg 03/24/19 17:00 03/27/19 08:15 Topamax PO 100 mg BID BUSTER Administration Labs Labs: Laboratory Results - last 24 hr
[2019-03-27 14:00] VITALS: BP 117/77; PULSE 86; RESP 15; TEMP 36.7; O2SAT 100
--- NOTE | 2019-03-27 14:55 | PM.CNOR ---
Assessment and Plan Assessment and plan (1) Osteomyelitis of second toe of left foot: Code(s): M86.9 - Osteomyelitis, unspecified Status: Acute Assessment and Plan: Left 2nd toe deformity with chronic ulceration and callus state. Neuropathy of unknown etiology contributing to infection and risk. Nonhealing ulcer now with osteomyelitis of the distal phalanx. Agree with Dr. Paris is a evaluation and assessment and options for treatment including long-term antibiotics versus surgical debridement. Discussed nonoperative and operative treatment options with the patient. Risks and benefits of each as well as alternatives were reviewed. All of the patient's questions were answered. The risks of surgery reviewed including but not limited to: Neurovascular damage, wound complication, infection, blood clot, pulmonary embolus, stroke, myocardial infarction, and anesthetic risks up to and including . Continued pain and possible dysfunction were explained. Specific risks of the procedure including later recurrence of deformity. No guarantees were offered. If complications occur, the patient understands the need for further treatment, possible further surgery. Patient verbalizes understanding and wishes to proceed. PLAN: Left 2nd toe amputation. (2) Cellulitis of second toe of left foot: Code(s): L03.032 - Cellulitis of left toe Status: Acute Assessment and Plan: Improved with intravenous antibiotics. (3) Hammertoe of left foot: Code(s): M20.42 - Other hammer toe(s) (acquired), left foot Status: Chronic Assessment and Plan: Discussed with patient. Need to proceed with treatment for the infection 1st. Follow-up to see if she will need further treatment for the hammertoe deformity. (4) Hammertoe of right foot: Code(s): M20.41 - Other hammer toe(s) (acquired), right foot Status: Chronic Assessment and Plan: Continue with daily skin evaluations. Discussed with patient operative and non operative treatment. We will have to wait on operative treatment until her infection has resolved. (5) Peripheral neuropathy: Code(s): G62.9 - Polyneuropathy, unspecified Status: Acute History of Present Illness HPI Consult date: 03/27/19 Requesting physician: Shay Osman DO Consult reason: other ( left 2nd toe infection) Chief complaint: Left 2nd toe osteomyelitis Narrative: 48-year-old female with chronic callus formation and deformity of the left 2nd toe. Patient intermittently trims callus on her home. Most recent time noted ulcer under the callus and redness and swelling increased pain 2nd toe. Seen at outside emergency room and transferred here for further care. Started on intravenous antibiotics. Patient complains of pain at the 2nd toe. Increased pain with motion of the toe. Denies fever or chills. Denies problems eating or voiding while at home. Was started on oral antibiotics 1 day prior to admission. Patient has had several episodes of callus formation and removal with subsequent local infections treated previously without surgery. Episodes cause patient to have to be off for for foot and unable to perform her daily living activity. Also associated with significant pain. She has not been able to get the toe to completely heal up over the past 2 years. Problems began when she dropped a heavy object on the toe at that time. Review of Systems Constitutional: Constitutional: Denies chills and Denies fever(s) Eyes: Eyes: Denies change in vision and Denies photophobia ENT: Denies dysphagia, Denies nasal congestion and Denies sore throat Cardiovascular: Cardiovascular: Denies chest pain and Denies radiating jaw, neck or arm pain Respiratory: Respiratory: Denies cough, Denies dyspnea, Reports dyspnea on exertion and Denies wheezing Gastrointestinal: Gastrointestinal: Denies nausea and Denies vomiting Musculoskeletal: Musculoskeletal:
--- NOTE | 2019-03-27 15:28 | PM.IMPN ---
Progress Note: A&P Assessment and Plan (1) Sepsis: Code(s): A41.9 - Sepsis, unspecified organism Status: Acute Assessment and Plan: -----Resolved. Present on admission and supported by leukocytosis and lactic acidosis in the setting of infection. Likely d/t osteomyelitits. Blood cultures are NGTD. vitals stable. (2) Osteomyelitis of second toe of left foot: Code(s): M86.9 - Osteomyelitis, unspecified Status: Acute Assessment and Plan: ------Continue ceftriaxone. Plan for sx in the near future by Dr. [place]. (3) Cellulitis of second toe of left foot: Code(s): L03.032 - Cellulitis of left toe Status: Acute Assessment and Plan: ------Continue ceftiraxone--improving. (4) Asthma: Code(s): J45.909 - Unspecified asthma, uncomplicated Status: Acute Assessment and Plan: -----No acute issues and well controlled Subjective Date/time seen: 03/27/19 15:28 Interval history: Pt is a 48-year-old female here for osteomyelitis. Patient was seen today and states her toe is hurting and the pain meds don't last very long. She feels comfortable at this time. She has not had a BM since being here. Overall she is feeling good. Pt denies CP, SOB, fevers, n/v, or chills. Exam Narrative: Exam Narrative: General: Well developed well nourished patient resting comfortably in bed in NAD HEENT: normocephalic Neck: supple Neuro: Alert and oriented x4 CV:RRR Resp:CTA Abd: Soft, non distended. No pain to palpation. Positive bowel sounds Extremities: Left foot 2nd phalanx has a small eschar callus at the distal tip of the toe. Eryethema down to the middle of the toe. Objective Data Vital Signs Vital Signs: Vital Signs - 24 hr 03/26/19 20:00 03/26/19 22:52 03/27/19 06:11 Temperature 98.3 F 98.6 F Pulse Rate 81 77 87 Respiratory Rate 16 16 18 Blood Pressure 138/77 124/67 Pulse Oximetry 98 99 99 03/27/19 14:00 Temperature 98.1 F Pulse Rate 86 Respiratory Rate 15 Blood Pressure 117/77 Pulse Oximetry 100 Intake/Output Intake/Output: Intake & Output 03/24/19 03/25/19 03/26/19 03/27/19 23:59 23:59 23:59 23:59 Intake Total 690 4049 1920 628 Output Total 0 2850 350 Balance 690 1199 1570 628 Meds/Results Medications: Active Medications Generic Name Dose Route Start Last Admin Trade Name Freq PRN Reason Stop Dose Admin Acetaminophen 650 mg 03/24/19 15:38 03/25/19 12:32 Tylenol Tablet PO 650 mg Q6H PRN Administration Mild Pain (1-3) or Fever Hydrocodone Bitart/Acetaminophen 1 tab 03/27/19 12:00 [place] 5-325 Mg PO Q6H PRN Pain Rated 4-6 Albuterol 1 puff 03/24/19 14:34 Proventil Hfa INHALATION PRN PRN Wheezing Amitriptyline HCl 75 mg 03/24/19 21:00 03/26/19 20:28 Elavil PO 75 mg HS BUSTER Administration Artificial Tears 1 drop 03/26/19 12:25 03/26/19 14:49 Artificial Tears EACH EYE 1 drop QID PRN Administration Dry Eye(s) Cyanocobalamin 1,000 mcg 03/27/19 09:00 03/27/19 08:15 Vitamin B-12 Tab PO 1,000 mcg QAM BUSTER Administration Duloxetine HCl 60 mg 03/24/19 17:00 03/27/19 08:15 Cymbalta PO 60 mg BID BUSTER Administration Fluticasone Propionate 1 spray 03/24/19 14:50 Flonase 0.05% Nasal [place] NASAL DAILY PRN Allergy Symptoms Ceftriaxone Sodium 2 gm in 100 mls @ 200 mls/hr 03/25/19 12:00 03/27/19 12:45 Rocephin 2 Gm/D5w 100 Ml IVPB Infused Q24H BUSTER Infusion Levothyroxine Sodium 150 mcg 03/25/19 06:30 03/27/19 06:00 Synthroid PO 150 mcg DAILY@0630 BUSTER Administration Morphine Sulfate 2 mg 03/24/19 15:39 03/27/19 06:05 Morphine Sulfate Inj IV PUSH 2 mg Q4H PRN Administration [place] 7-10 AFTER norco Silver Nitrate 1 applic 03/25/19 14:55 03/26/19 14:49 Silvergel TOPICAL 1 applic Q24H BUSTER Administration Topiramate 100 mg 03/24/19 17:00 03/27/19 08:
[2019-03-27] MEDS: SILVERGEL (ELTA) 45 ML 1 APPLIC TOPICAL (15:51)
[2019-03-27] MEDS: polyethylene glycoL 3350 17 GM POWD.PACK PO (15:51)
[2019-03-27 20:00] VITALS: PULSE 86; RESP 15; O2SAT 100
[2019-03-27] MEDS: AMITRIPTYLINE HCL 25 MG TABLET 75 MG PO (20:04)
[2019-03-27 22:00] VITALS: BP 101/67; PULSE 81; RESP 20; TEMP 36.5; O2SAT 98
[2019-03-28] VITALS (14 sets, daily range): BP systolic 85–124; BP diastolic 51–80; PULSE 17–85; RESP 16–99; TEMP 36.2–36.8; O2SAT 69–100
[2019-03-28] MEDS: LEVOTHYROXINE SODIUM 150 MCG TABLET PO (05:08)
[2019-03-28 05:38] LABS: Hematocrit 42.5 % (37.0-47.0); Hemoglobin 13.4 g/dL (12.0-15.0); Mean Corpuscular HGB Conc 31.5 g/dl (32-36); Mean Corpuscular Hemoglobin 31.2 pg (26-34); Mean Corpuscular Volume 98.8 fl (80-100); Mean Platelet Volume 9.2 fl (7.4-10.4); Platelet Count Result 394 k/mm3 (150-375); Red Cell Distribution Width 13.2 % (11.5-14.5)
[2019-03-28 05:41] LABS: INR 0.9; Prothrombin Time 11.6 Seconds (11.1-14.7)
[2019-03-28 05:42] LABS: Partial Thromboplastin Time 26.7 SECONDS (22.3-36.8)
[2019-03-28 06:39] LABS: Alanine Aminotransferase 17 U/L (4-35); Albumin Level 4.2 g/dL (3.5-5.1); Alkaline Phosphatase 99 U/L (38-126); Aspartate Amino Transferase 24 U/L (14-36); Bilirubin,Total 0.3 mg/dL (0.2-1.3); Blood Urea Nitrogen 13 mg/dL (7-17); Calcium 9.9 mg/dL (8.4-10.2); Carbon Dioxide 24 mmol/L (22-30); Chloride 104 mmol/L (98-107); Estimated CRCL calculation 86 ml/min; Estimated Glomerular Filt Rate > 60; Glucose 102 mg/dL (65-105); Potassium 4.1 mmol/L (3.4-5.0); Sodium 140 mmol/L (137-145)
--- NOTE | 2019-03-28 10:18 | PC.NURSE ---
To OR per bed, IV intact.
[2019-03-28] MEDS: LACTATED RINGERS 1,000 ML 30 ML IV CONT (10:45)
--- NOTE | 2019-03-28 10:48 | WPDANESEPPF ---
Anes - Initial Pre Proc Eval Procedure: Operation Date: 03/28/19 15:00 Proposed Procedures p Left 2nd Toe Amputation - Antonio Lambert MD Date/Time: 03/28/19 10:48 Surgeon: FREDERICK Pacheco Pre Op Diagnosis: Left 2nd toe osteomyelitis Patient Data Age: 48 Gender: F Height: 5 ft 5 in Weight: 122.1 kg Last Vital Signs Temp 97.2 F L 03/28/19 10:39 Pulse 84 03/28/19 10:39 Resp 18 03/28/19 10:39 BP 103/54 L 03/28/19 10:39 Pulse Ox 100 03/28/19 10:39 Allergies Allergy/AdvReac Type Severity Reaction Status Date / Time NSAIDS (Non-Steroidal Allergy Intermediate Verified 03/28/19 10:38 Anti-Inflamma Home Medications Medication Instructions Recorded Confirmed Type albuterol sulfate 90 mcg INHALATION PRN PRN 03/24/19 03/24/19 History amitriptyline 75 mg PO HS 03/24/19 03/24/19 History duloxetine 60 mg PO BID 03/24/19 03/24/19 History ergocalciferol (vitamin D2) 1,250 mcg WEEKLY 03/24/19 03/24/19 History fluticasone propionate 50 spray INTRANASAL DAILY PRN 03/24/19 03/24/19 History hydrocodone-acetaminophen 1 tablet PO BID PRN 03/24/19 03/24/19 History levothyroxine 150 mcg PO DAILY 03/24/19 03/24/19 History metformin 1,000 mg BID 03/24/19 03/24/19 History sulfamethoxazole-trimethoprim 800 tablet PO BID 03/24/19 03/24/19 History topiramate 100 mg PO BID 03/24/19 03/24/19 History Laboratory Tests 03/28/19 03/28/19 03/28/19 05:14 05:14 06:13 WBC 11.0 K/mm3 H K/mm3 (4.5-10.0) RBC 4.30 M/mm3 M/mm3 (4.2-5.4) Hgb 13.4 g/dL g/dL (12.0-15.0) Hct 42.5 % % (37.0-47.0) MCV 98.8 fl fl (80-100) MCH 31.2 pg pg (26-34) MCHC 31.5 g/dl L g/dl (32-36) RDW 13.2 % % (11.5-14.5) Plt Count 394 k/mm3 H k/mm3 (150-375) MPV 9.2 fl fl (7.4-10.4) PT 11.6 Seconds Seconds (11.1-14.7) INR 0.9 APTT 26.7 SECONDS SECONDS (22.3-36.8) Sodium 140 mmol/L mmol/L (137-145) Potassium 4.1 mmol/L mmol/L (3.4-5.0) Chloride 104 mmol/L mmol/L (98-107) Carbon Dioxide 24 mmol/L mmol/L (22-30) BUN 13 mg/dL mg/dL (7-17) Creatinine 0.90 mg/dL mg/dL (0.7-1.0) Estim Creat Clear Calc 86 ml/min ml/min Estimated GFR > 60 (59 - ) Glucose 102 mg/dL mg/dL (65-105) Calcium 9.9 mg/dL mg/dL (8.4-10.2) Total Bilirubin 0.3 mg/dL mg/dL (0.2-1.3) AST 24 U/L U/L (14-36) ALT 17 U/L U/L (4-35) Alkaline Phosphatase 99 U/L U/L (38-126) Total Protein 8.0 g/dL g/dL (6.3-8.2) Albumin 4.2 g/dL g/dL (3.5-5.1) Patient hx anesthesia problems: none Family hx anesthesia problems: none [facility] Past Medical History Medical History (Updated 03/27/19 @ 15:07 by Antonio Lambert MD) Arthritis Asthma Bipolar 1 disorder Dyslipidemia Fibromyalgia Hammertoe of left foot Hammertoe of right foot PCOD (polycystic ovarian disease) Peripheral neuropathy Vitamin D deficiency Surgical History Surgical History (Updated 03/24/19 @ 19:40 by Morelia Borrego PA-C) History of appendectomy History of D&C After a miscarriage. Hx of knee surgery Bilateral knee arthroscopy. Family History Family History Mother Depression High cholesterol Hypertension Diabetes mellitus Father Depression High cholesterol Skin cancer Cerebrovascular accident Hypertension Sibling Lung cancer Social History Social History (Updated 03/24/19 @ 19:41 by Morelia Borrego PA-C) Social History: The patient lives in [place] with her ex-. They have recently gotten re-engaged. 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 she designates Jose Angel Martinez, as her surrogate decision maker and she wishes to be a full code. She has smoked off and on for many years, up t
--- NOTE | 2019-03-28 11:32 | PM.IMPN ---
Progress Note: A&P Assessment and Plan (1) Osteomyelitis of second toe of left foot: Code(s): M86.9 - Osteomyelitis, unspecified Status: Acute Assessment and Plan: Dr. Lambert following -appreciate recommendations. Noted his plan for left 2nd toe amputation today. Remains on Rocephin (day 4). Dr Osman and Dr. Paris following -appreciate input. (2) Sepsis: Qualifiers: Sepsis acute organ dysfunction status: unspecified Sepsis type: sepsis due to unspecified organism Qualified Code(s): A41.9 - Sepsis, unspecified organism Code(s): A41.9 - Sepsis, unspecified organism Status: Acute Assessment and Plan: Resolved. Evident by leukocytosis and lactic acidosis on admission. Suspected source was osteomyelitis. Blood cultures are pending with no growth to date. (3) Cellulitis of second toe of left foot: Code(s): L03.032 - Cellulitis of left toe Status: Acute Assessment and Plan: See above. (4) Asthma: Qualifiers: Asthma complication type: uncomplicated Asthma persistence: intermittent Asthma severity: mild Qualified Code(s): J45.20 - Mild intermittent asthma, uncomplicated Code(s): J45.909 - Unspecified asthma, uncomplicated Status: Acute Assessment and Plan: Stable. No evidence of respiratory distress. Albuterol PRN. Subjective Date/time seen: 03/28/19 1045 Interval history: Ms. Martinez is a 48yo F admitted with osteomyelitis left 2nd toe. She is comfortable at time of my exam. She reports feeling thirsty but no other complaints at this time. She denies chest pain, shortness of breath, nausea, vomiting, or calf tenderness. Review of Systems Review of Systems: Narrative: Twelve systems were reviewed with pertinent positives and negatives as per HPI. Exam Narrative: Exam Narrative: General: Overweight female resting supine in bed in no acute distress. HEENT: Normocephalic, EOMI, oral mucosa moist. Cardiovascular: Rate and rhythm regular. Respiratory: Lungs clear to auscultation all poe. Non-labored breathing. Abdomen: Soft, protuberant, non-tender, bowel sounds present. Extremities: Distal left 2nd toe eschar, mild erythema surrounding. No other notable erythema, edema, or pain to palpation. Neuro: No focal neurological deficits. Speech is clear. Objective Data Vital Signs Vital Signs: Last Vital Signs Temp 97.2 F L 03/28/19 10:39 Pulse 84 03/28/19 10:39 Resp 18 03/28/19 10:39 BP 103/54 L 03/28/19 10:39 Pulse Ox 100 03/28/19 10:39 Intake/Output Intake/Output: Intake & Output 03/25/19 03/26/19 03/27/19 03/28/19 23:59 23:59 23:59 23:59 Intake Total 4049 1920 2228 480 Output Total 2850 350 1400 4 Balance 1199 1570 828 476 Meds/Results Medications: Active Medications Generic Name Dose Route Start Last Admin Trade Name Freq PRN Reason Stop Dose Admin Acetaminophen 650 mg 03/24/19 15:38 03/25/19 12:32 Tylenol Tablet PO 650 mg Q6H PRN Administration Mild Pain (1-3) or Fever Hydrocodone Bitart/Acetaminophen 1 tab 03/27/19 12:00 03/28/19 05:09 [place] 5-325 Mg PO 1 tab Q6H PRN Administration Pain Rated 4-6 Albuterol 1 puff 03/24/19 14:34 Proventil Hfa INHALATION PRN PRN Wheezing Amitriptyline HCl 75 mg 03/24/19 21:00 03/27/19 20:04 Elavil PO 75 mg HS BUSTER Administration Artificial Tears 1 drop 03/26/19 12:25 03/26/19 14:49 Artificial Tears EACH EYE 1 drop QID PRN Administration Dry Eye(s) Cyanocobalamin 1,000 mcg 03/27/19 09:00 03/27/19 08:15 Vitamin B-12 Tab PO 1,000 mcg QAM BUSTER Administration Duloxetine HCl 60 mg 03/24/19 17:00 03/27/19 16:46 Cymbalta PO 60 mg BID BUSTER Administration Fentanyl Citrate 25 mcg 03/28/19 10:40 Sublimaze IV PUSH Q
--- NOTE | 2019-03-28 11:43 | WPDHPUPDATE1 ---
History and Physical Update Update Date/Time: 03/28/19 11:43 History and Physical has been reviewed, including an updated exam of the patient. There are NO changes in the patient's condition. Risks, benefits, and alternatives have been discussed and questions answered. Patient agrees to proceed with procedure.
--- NOTE | 2019-03-28 12:32 | PM.PROC ---
Procedure Note - Detailed Date of procedure: 03/28/19 Pre-op diagnosis: Left 2nd toe osteomyelitis Post-op diagnosis: same Procedure performed: Left 2nd toe amputation Description of procedure: Patient identified in the preoperative holding. Informed consent given. Operative extremity marked. Patient received intravenous antibiotics. Patient brought to the operating room where underwent general anesthetic by anesthesia team. Positioned supine on operating room table. Time-out performed confirming the patient, site of the surgery and the plan. Left foot prepped and draped in the usual sterile surgical fashion using a Betadine prep solution. Esmarch bandage was used as a tourniquet in secured at the ankle. The left 2nd toe nail was completely deformed secondary to infection multiple callus and ulcer chronic condition. The distal phalanx was noted to have changes consistent with osteomyelitis as well as purulent drainage. Elliptical incision was made with a 15 blade knife over the middle phalanx. Hemostasis was controlled electrocautery. The middle phalanx bone was transected with a bone cutter. The distal portion of the toe was then from the soft tissue brought out and passed off as specimen for pathology and cultures. Toe had a more natural alignment secondary to release of the flexor tendon. The overall length was more in line with the hallux and 3rd toe. Thorough irrigation done with antibiotic solution. Soft tissue then approximated with 4 O nylon interrupted suture. Sterile dressing placed. Tourniquet at the ankle released and good capillary refill noted in the toes. Local anesthetic with 10 cc of 0.5% Marcaine prior to the dressing. Patient then woken from anesthesia, extubated and taken to the recovery room in stable condition. All sponge needle and instrument counts correct at the end of the case. Anesthesia: GLMA Surgeon: Antonio Lambert MD Industrial Engineering Analyst: medical office assistant instructor Estimated blood loss (mL): 2 Drains: No Packing: No Pathology: yes (2nd toe for gross, microscopic pathology and for aerobe, and anaerobic and Gram stain cultures.) Complications: No immediate complications Condition: stable Disposition: PACU Findings: Changes of the distal phalanx of the left 2nd toe consistent with chronic osteomyelitis and recurrent ulceration. More proximal tissue without signs of infection, good blood flow and viability.
--- NOTE | 2019-03-28 12:57 | SUR.OPER ---
Toe Specimen given to farrah in lab@ [id number]
--- NOTE | 2019-03-28 13:58 | PC.NURSE ---
Returned from OR per bed. IV intact.
[2019-03-28] MEDS: polyethylene glycoL 3350 17 GM POWD.PACK PO (14:03)
[2019-03-28] MEDS: CYANOCOBALAMIN 1,000 MCG TABLET 1000 MCG PO (14:03)
--- NOTE | 2019-03-28 16:17 | PC.NURSE ---
Patient tolerating clear and full liquids post surgery. Orders from Dr. Lambert to advance as tolerated to diabetic. Patient on regular diet prior to surgery. Per LUPIS Marrero ok to advance patient to regular diet.
[2019-03-28] MEDS: TOPIRAMATE 100 MG TABLET PO (18:16)
[2019-03-28] MEDS: DULOXETINE 60 MG CAPSULE.DR PO (18:16)
[2019-03-28] MEDS: MORPHINE SULFATE 2 MG/ML INJ IV PUSH (19:59)
[2019-03-28] MEDS: AMITRIPTYLINE HCL 25 MG TABLET 75 MG PO (19:59)
[2019-03-29] MEDS: MORPHINE SULFATE 2 MG/ML INJ IV PUSH ×4 (01:14→22:07)
[2019-03-29 06:00] VITALS: BP 99/55; PULSE 79; RESP 16; TEMP 36.3; O2SAT 100
[2019-03-29] MEDS: LEVOTHYROXINE SODIUM 150 MCG TABLET PO (06:05)
[2019-03-29 06:06] LABS: Basophils Absolute Auto 0.1 K/mm3 (0.0-0.1); Basophils Percent Auto 0.4 % (0.2-1.2); Eosinophils Absolute Auto 0.1 K/mm3 (0-0.3); Eosinophils Percent Auto 0.5 % (0-4.4); Hematocrit 44.1 % (37.0-47.0); Hemoglobin 14.4 g/dL (12.0-15.0); Immature Granulocyte Absolute 0.11 K/mm3 (0.00-0.031); Immature Granulocyte Percent A 0.6 % (0-0.5); Lymphocytes Absolute Auto 3.68 K/mm3 (0.9-3.2); Lymphocytes Percent Auto 20.6 % (18.3-44.2); Mean Corpuscular HGB Conc 32.7 g/dl (32-36); Mean Corpuscular Hemoglobin 32.1 pg (26-34); Mean Corpuscular Volume 98.4 fl (80-100); Mean Platelet Volume 10.9 fl (7.4-10.4); Monocytes Absolute Auto 0.9 K/mm3 (0.1-0.6); Monocytes Percent Auto 4.8 % (2.6-8.5); Neutrophils Absolute Auto 13.1 K/mm3 (1.3-6.7); Neutrophils Percent Auto 73.1 % (45.5-73.1); Platelet Count Result 345 k/mm3 (150-375); Red Blood Count 4.48 M/mm3 (4.2-5.4); Red Cell Distribution Width 13.1 % (11.5-14.5); White Blood Count 17.9 K/mm3 (4.5-10.0)
[2019-03-29 08:41] LABS: Blood Urea Nitrogen 17 mg/dL (7-17); Calcium 9.6 mg/dL (8.4-10.2); Carbon Dioxide 25 mmol/L (22-30); Chloride 105 mmol/L (98-107); Estimated CRCL calculation 86 ml/min; Estimated Glomerular Filt Rate > 60; Glucose 93 mg/dL (65-105); Potassium 3.8 mmol/L (3.4-5.0); Sodium 141 mmol/L (137-145)
[2019-03-29] MEDS: CYANOCOBALAMIN 1,000 MCG TABLET 1000 MCG PO (08:54)
[2019-03-29] MEDS: DULOXETINE 60 MG CAPSULE.DR PO ×2 (08:54→17:03)
[2019-03-29] MEDS: polyethylene glycoL 3350 17 GM POWD.PACK PO (08:54)
[2019-03-29] MEDS: TOPIRAMATE 100 MG TABLET PO ×2 (08:54→17:03)
[2019-03-29 10:00] VITALS: BP 97/52; PULSE 87; RESP 16; TEMP 36.3; O2SAT 97
--- NOTE | 2019-03-29 11:18 | PM.IMPN ---
Progress Note: A&P Assessment and Plan (1) Osteomyelitis of second toe of left foot: Code(s): M86.9 - Osteomyelitis, unspecified Status: Acute Assessment and Plan: Dr. Lambert following - appreciate input. She is POD#1 s/p left second toe amputation by Dr Lambert. Remains on Rocephin (day 5). Dr Osman and Dr. Paris following -appreciate input. (2) Sepsis: Qualifiers: Sepsis acute organ dysfunction status: unspecified Sepsis type: sepsis due to unspecified organism Qualified Code(s): A41.9 - Sepsis, unspecified organism Code(s): A41.9 - Sepsis, unspecified organism Status: Acute Assessment and Plan: Resolved. Evident by leukocytosis and lactic acidosis on admission. Suspected source was osteomyelitis. Blood cultures are pending with no growth to date. (3) Cellulitis of second toe of left foot: Code(s): L03.032 - Cellulitis of left toe Status: Acute Assessment and Plan: See above. (4) Asthma: Qualifiers: Asthma complication type: uncomplicated Asthma persistence: intermittent Asthma severity: mild Qualified Code(s): J45.20 - Mild intermittent asthma, uncomplicated Code(s): J45.909 - Unspecified asthma, uncomplicated Status: Acute Assessment and Plan: Stable. No evidence of respiratory distress. Albuterol PRN. Subjective Date/time seen: 03/29/19 0915 Interval history: Ms. Martinez is a 48yo F s/p left 2nd toe amputation due to osteomyelitis and recurring ulceration. She is feeling well this morning. She reports some discomfort to the left foot but is tolerable at this time. She denies chest pain or shortness of breath. She has tolerated breakfast this morning without nausea, vomiting, or abdominal pain. She reports having a bowel movement last night. Review of Systems Review of Systems: Narrative: Twelve systems were reviewed with pertinent positives and negatives as per HPI. Exam Narrative: Exam Narrative: General: Female resting supine in bed in no acute distress. HEENT: Normocephalic, EOMI, oral mucosa moist. Cardiovascular: Rate and rhythm regular. Respiratory: Lungs clear to auscultation all poe. Non-labored breathing. Abdomen: Soft, protuberant, non-tender, bowel sounds present. Extremities: Left foot dressing intact. Left lower extremity does not appear edematous. Neuro: No focal neurological deficits. Speech is clear. Objective Data Vital Signs Vital Signs: Last Vital Signs Temp 97.4 F L 03/29/19 10:00 Pulse 87 03/29/19 10:00 Resp 16 03/29/19 10:00 BP 97/52 L 03/29/19 10:00 Pulse Ox 97 03/29/19 10:00 Intake/Output Intake/Output: Intake & Output 03/26/19 03/27/19 03/28/19 03/29/19 23:59 23:59 23:59 23:59 Intake Total 1920 2228 1210 940 Output Total 350 1400 804 Balance 1570 828 406 940 Meds/Results Medications: Active Medications Generic Name Dose Route Start Last Admin Trade Name Freq PRN Reason Stop Dose Admin Acetaminophen 650 mg 03/24/19 15:38 03/25/19 12:32 Tylenol Tablet PO 650 mg Q6H PRN Administration Mild Pain (1-3) or Fever Hydrocodone Bitart/Acetaminophen 1 tab 03/27/19 12:00 03/29/19 06:09 [place] 5-325 Mg PO 1 tab Q6H PRN Administration Pain Rated 4-6 Albuterol 1 puff 03/24/19 14:34 Proventil Hfa INHALATION PRN PRN Wheezing Amitriptyline HCl 75 mg 03/24/19 21:00 03/28/19 19:59 Elavil PO 75 mg HS BUSTER Administration Artificial Tears 1 drop 03/26/19 12:25 03/26/19 14:49 Artificial Tears EACH EYE 1 drop QID PRN Administration Dry Eye(s) Cyanocobalamin 1,000 mcg 03/27/19 09:00 03/29/19 08:54 Vitamin B-12 Tab PO 1,000 mcg QAM BUSTER Administration Duloxetine HCl 60 mg 03/24/19 17:00 03/29/19 08:54 Cymbalta PO 60 mg BID BUSTER Admi
[2019-03-29 14:00] VITALS: BP 105/68; PULSE 87; RESP 16; TEMP 35.7; O2SAT 99
--- NOTE | 2019-03-29 14:01 | WPDANESPN ---
Anes - Prog Note Post-Op Date/Time: 03/29/19 14:01 Cardiovascular status: normal Respiratory status: normal Airway patency: baseline Mental status: baseline Post-Op hydration status: normal Vital Signs: Last Vital Signs Temp 36.3 C L 03/29/19 10:00 Pulse 87 03/29/19 10:00 Resp 16 03/29/19 10:00 BP 97/52 L 03/29/19 10:00 Pulse Ox 97 03/29/19 10:00 I/O: Intake & Output 03/28/19 03/29/19 03/29/19 23:59 07:59 15:59 Intake Total 600 700 580 Output Total 800 Balance -200 700 580 Laboratory Tests 03/29/19 05:18 03/29/19 08:12 03/29/19 03/29/19 05:18 08:12 WBC 17.9 H RBC 4.48 Hgb 14.4 Hct 44.1 MCV 98.4 MCH 32.1 MCHC 32.7 RDW 13.1 Plt Count 345 MPV 10.9 H Immature Gran % (Auto) 0.6 H Neut % (Auto) 73.1 Lymph % (Auto) 20.6 [place] % (Auto) 4.8 Eos % (Auto) 0.5 Baso % (Auto) 0.4 Lymph # (Auto) 3.68 H [place] # (Auto) 0.9 H Eos # (Auto) 0.1 Baso # (Auto) 0.1 Abs Immat Gran (auto) 0.11 H Absolute Neuts (auto) 13.1 H Absolute Nucleated RBC 0.0 Nucleated RBC % 0.0 % Immature Plt Fraction 6.0 Sodium 141 Potassium 3.8 Chloride 105 Carbon Dioxide 25 BUN 17 Creatinine 0.90 Estim Creat Clear Calc 86 Estimated GFR > 60 Glucose 93 Calcium 9.6 Microbiology 03/28/19 12:28 Toe Left Second Wound Culture - Preliminary Post-procedural complaints: none Patient Feedback: Patient satisfied with anesthetic care.
[2019-03-29 20:00] VITALS: PULSE 87; RESP 16; O2SAT 99
[2019-03-29 21:48] VITALS: BP 128/78; PULSE 87; RESP 20; TEMP 36.3; O2SAT 100
[2019-03-29] MEDS: AMITRIPTYLINE HCL 25 MG TABLET 75 MG PO (22:07)
[2019-03-30 05:44] VITALS: BP 98/65; PULSE 75; RESP 20; TEMP 36.2; O2SAT 99
[2019-03-30 06:00] LABS: Basophils Absolute Auto 0.1 K/mm3 (0.0-0.1); Basophils Percent Auto 0.7 % (0.2-1.2); Eosinophils Absolute Auto 0.5 K/mm3 (0-0.3); Eosinophils Percent Auto 4.4 % (0-4.4); Hematocrit 39.8 % (37.0-47.0); Hemoglobin 12.8 g/dL (12.0-15.0); Immature Granulocyte Absolute 0.05 K/mm3 (0.00-0.031); Immature Granulocyte Percent A 0.5 % (0-0.5); Lymphocytes Absolute Auto 3.68 K/mm3 (0.9-3.2); Mean Corpuscular HGB Conc 32.2 g/dl (32-36); Mean Corpuscular Hemoglobin 31.7 pg (26-34); Mean Corpuscular Volume 98.5 fl (80-100); Mean Platelet Volume 9.4 fl (7.4-10.4); Monocytes Absolute Auto 0.5 K/mm3 (0.1-0.6); Monocytes Percent Auto 5.3 % (2.6-8.5); Neutrophils Absolute Auto 5.4 K/mm3 (1.3-6.7); Neutrophils Percent Auto 53.1 % (45.5-73.1); Platelet Count Result 375 k/mm3 (150-375); Red Blood Count 4.04 M/mm3 (4.2-5.4); Red Cell Distribution Width 13.1 % (11.5-14.5); White Blood Count 10.2 K/mm3 (4.5-10.0)
[2019-03-30] MEDS: LEVOTHYROXINE SODIUM 150 MCG TABLET PO (06:27)
[2019-03-30] MEDS: MORPHINE SULFATE 2 MG/ML INJ IV PUSH ×2 (08:00→13:51)
[2019-03-30] MEDS: TOPIRAMATE 100 MG TABLET PO ×2 (08:03→16:25)
[2019-03-30] MEDS: DULOXETINE 60 MG CAPSULE.DR PO ×2 (08:03→16:24)
[2019-03-30] MEDS: CYANOCOBALAMIN 1,000 MCG TABLET 1000 MCG PO (08:03)
[2019-03-30] MEDS: polyethylene glycoL 3350 17 GM POWD.PACK PO (08:03)
--- NOTE | 2019-03-30 09:08 | PM.PNORT ---
Progress Note: A&P Assessment and Plan (1) Amputation toe: Qualifiers: Laterality: left Qualified Code(s): S98.132A - Complete traumatic amputation of one left lesser toe, initial encounter Code(s): S98.139A - Complete traumatic amputation of one unspecified lesser toe, initial encounter Status: Acute Assessment and Plan: POD #2: Left 2nd Ray Amputation Dressing changed. Incision well-approximated 2nd Ray. Redness improving. Begin daily dressing changes with transfer, gauze, cover dry. Post Op shoe for ambulation. PWB on heel. Antibiotics per Dr. Paris. Will follow up in 2 weeks for suture removal with Dr. Lambert as an outpatient. Subjective Subjective Date/Time Seen: 03/30/19 09:08 POD#2: Left 2nd Ray Amputation Patient doing well, no new complaints. Sitting up in bed. Endorses intermittent pain of the left foot and is requesting transition from [place] to Percocet due to constipation. Review of Systems Constitutional: Constitutional: Denies chills, Denies fever(s) and Denies weakness Cardiovascular: Cardiovascular: Denies chest pain and Denies lightheadedness Respiratory: Respiratory: Denies cough and Denies dyspnea Gastrointestinal: Gastrointestinal: Denies abdominal pain and Reports constipation (BM last night- passing flatus ) Genitourinary: Genitourinary: Denies dysuria and Denies urinary hesitancy Musculoskeletal: Musculoskeletal: Reports other (Left Foot Pain ) Exam Const: General: comfortable and no acute distress Resp: Effort & Inspection: normal respiratory effort Cardio: Rate: regular rate Rhythm: regular rhythm GI: Auscultation: normal bowel sounds Skin: Wounds: wounds noted (LEFT 2nd Ray Amputation with incision well-approximated. No active drainage) Other: Tissue surrounding 2nd Ray amputation without redness/warmth/swelling. Palpable pedal pulses. Neuro: Cognition (Neuro): normal cognition Sensory Exam: normal sensation Extrem: Left lower extremity: foot (2nd Ray Amputation- Incision well-approximated. Mild redness-improving ) Details: vascular exam Details: dorsalis pedis pulse present and motor-sensory exam light-touch abnormal in all toes; no unusual warmth Psych: Mental Status: mental status grossly normal Affect: normal affect Objective Data Vital Signs Vital Signs: Vital Signs - 24 hr 03/29/19 10:00 03/29/19 14:00 03/29/19 20:00 Temperature 36.3 C L 35.7 C L Pulse Rate 87 87 87 Respiratory Rate 16 16 16 Blood Pressure 97/52 L 105/68 Pulse Oximetry 97 99 99 03/29/19 21:48 03/30/19 05:44 Temperature 36.3 C L 36.2 C L Pulse Rate 87 75 Respiratory Rate 20 20 Blood Pressure 128/78 98/65 L Pulse Oximetry 100 99 Intake/Output Intake/Output: Intake & Output 03/27/19 03/28/19 03/29/19 03/30/19 23:59 23:59 23:59 23:59 Intake Total 2228 1210 1280 290 Output Total 1400 804 Balance 665 861 7632 290 Meds/Results Medications: Active Medications Generic Name Dose Route Start Last Admin Trade Name Freq PRN Reason Stop Dose Admin Acetaminophen 650 mg 03/24/19 15:38 03/25/19 12:32 Tylenol Tablet PO 650 mg Q6H PRN Administration Mild Pain (1-3) or Fever Hydrocodone Bitart/Acetaminophen 1 tab 03/27/19 12:00 03/29/19 19:03 [place] 5-325 Mg PO 1 tab Q6H PRN Administration Pain Rated 4-6 Albuterol 1 puff 03/24/19 14:34 Proventil Hfa INHALATION PRN PRN Wheezing Amitriptyline HCl 75 mg 03/24/19 21:00 03/29/19 22:07 Elavil PO 75 mg HS BUSTER Administration Artificial Tears 1 drop 03/26/19 12:25 03/26/19 14:49 Artificial Tears EACH EYE 1 drop QID PRN Administration Dry Eye(s) Cyanocobalamin 1,000 mcg 03/27/19 09:00 03/30/19 08:03 Vitamin B-12 Tab PO 1,000 mcg QAM BUSTER Administration Duloxetine HCl 60 mg 03/24/19 17:00 03/30/19 08:03 Cymbalta PO 60 mg BID BUSTER Administration Ergocalciferol 50,000 unit 04/03/19 09:00 [place]
--- NOTE | 2019-03-30 13:52 | WPDINFPN2 ---
Progress Note: A&P Assessment and Plan (1) Osteomyelitis of second toe of left foot: Code(s): M86.9 - Osteomyelitis, unspecified Status: Acute Assessment and Plan: 1. L 2nd toe acute OM. POD #2 and stable. S aureus isolated, and I think that this is the sole and responsible pathogen for her infection. She received TMP-SMX preop outpatient, but I do not think that she truly failed this drug, so it is perfectly appropriate to resume this drug in case her isolate is MRSA. BCs ngsf 2. PCOS, on metformin, no DM REC Ctx #7, stop and place on Dicloxacillin and TMP-SMX x 14 days for suspected residual soft tissue infection. See orders. ok discharge, will sign off. Subjective Date/time seen: 03/30/19 13:52 Interval history: no new complaints, no foot pain nor diarrhea Exam Narrative: Exam Narrative: afebrile Const: General: no acute distress Eyes: General: appearance normal, both eyes and all related structures Resp: Effort & Inspection: normal respiratory effort Auscultation: clear to auscultation bilaterally Cardio: Rate: regular rate Rhythm: regular rhythm Heart sounds: no gallops and no murmurs GI: Inspection: non-distended GI Palp: Yes Soft to palpation and No Tenderness to palpation present (GI) Skin: General skin exam: no rashes or lesions noted Objective Data Vital Signs Vital Signs: Vital Signs - 24 hr 03/29/19 14:00 03/29/19 20:00 03/29/19 21:48 Temperature 35.7 C L 36.3 C L Pulse Rate 87 87 87 Respiratory Rate 16 16 20 Blood Pressure 105/68 128/78 Pulse Oximetry 99 99 100 03/30/19 05:44 Temperature 36.2 C L Pulse Rate 75 Respiratory Rate 20 Blood Pressure 98/65 L Pulse Oximetry 99 Intake/Output Intake/Output: Intake & Output 03/27/19 03/28/19 03/29/19 03/30/19 23:59 23:59 23:59 23:59 Intake Total 2228 1210 1280 1350 Output Total 1400 804 Balance 034 836 6525 1350 Meds/Results Medications: Active Medications Generic Name Dose Route Start Last Admin Trade Name Freq PRN Reason Stop Dose Admin Acetaminophen 650 mg 03/24/19 15:38 03/25/19 12:32 Tylenol Tablet PO 650 mg Q6H PRN Administration Mild Pain (1-3) or Fever Hydrocodone Bitart/Acetaminophen 1 tab 03/27/19 12:00 03/30/19 10:07 [place] 5-325 Mg PO 1 tab Q6H PRN Administration Pain Rated 4-6 Albuterol 1 puff 03/24/19 14:34 Proventil Hfa INHALATION PRN PRN Wheezing Amitriptyline HCl 75 mg 03/24/19 21:00 03/29/19 22:07 Elavil PO 75 mg HS BUSTER Administration Artificial Tears 1 drop 03/26/19 12:25 03/26/19 14:49 Artificial Tears EACH EYE 1 drop QID PRN Administration Dry Eye(s) Cyanocobalamin 1,000 mcg 03/27/19 09:00 03/30/19 08:03 Vitamin B-12 Tab PO 1,000 mcg QAM BUSTER Administration Dicloxacillin Sodium 500 mg 03/30/19 18:00 Dicloxacillin Sodium PO 04/11/19 18:01 Q6HR BUSTER Duloxetine HCl 60 mg 03/24/19 17:00 03/30/19 08:03 Cymbalta PO 60 mg BID [facility] Administration Ergocalciferol 50,000 unit 04/03/19 09:00 Drisdol BY MOUTH Mo@0900 [facility] Fluticasone Propionate 1 spray 03/24/19 14:50 Flonase 0.05% Nasal [place] NASAL DAILY PRN Allergy Symptoms Levothyroxine Sodium 150 mcg 03/25/19 06:30 03/30/19 06:27 Synthroid PO 150 mcg DAILY@0630 [facility] Administration Morphine Sulfate 2 mg 03/24/19 15:39 03/30/19 08:00 Morphine Sulfate Inj IV PUSH 2 mg Q4H PRN Administration [place] 7-10 AFTER norco Ondansetron HCl 4 mg 03/28/19 13:45 Zofran Inj IV PUSH Q6H PRN Nausea And Vomiting Polyethylene Glycol 17 gm 03/27/19 15:35 03/30/19 08:03 Miralax PO 17 gm DAILY BUSTER Administration Topiramate 100 mg 03/24/19 17:00 03/30/19 08:03 Topamax PO 100 mg BID BUSTER Administration Trimethoprim/Sulfamethoxazole 1 tab 03/30/19 21:00 Septra Ds PO 04/11/19 21:01 Q12HR [facility] Labs Labs: Laboratory Results - last 2
[2019-03-30 14:00] VITALS: BP 125/85; PULSE 98; RESP 20; TEMP 35.9; O2SAT 97
[2019-03-30] MEDS: DICLOXACILLIN SODIUM 250 MG CAPSULE 500 MG PO (16:25)
--- NOTE | 2019-03-30 16:30 | PC.NURSE ---
Dressing change performed and patient taught dressing change. Demonstrated dressing to left second toe - transfer, fluffs and kerlix roll. Patient observed and verbalized her understanding. She states she is able to perform dressings at home and her is also available to help her.
--- NOTE | 2019-03-30 18:22 | PM.DS ---
DS: Diagnosis Admitting Diagnosis Admitting Diagnosis: Osteomyelitis, unspecified Discharge Diagnosis (1) Osteomyelitis of second toe of left foot: Code(s): M86.9 - Osteomyelitis, unspecified Status: Acute Assessment and Plan: Date of Service 03/30/19 Ms. Martinez is a pleasant 48yo F with history of PCOS and asthma who presented from the ED at [facility] for evaluation of a sore on her left 2nd toe. She noted that she has had recurring ulcers to this toe intermittently ever since dropping something heavy on that foot a few years ago. X ray of the toe showed erosions of tuft of second distal phalanx, consistent with osteomyelitis. General surgery, orthopedic surgery, and infectious disease were consulted. She was started on IV Rocephin. Ultimately, she underwent amputation of the left 2nd toe by Dr Lambert 03/28/19 which she tolerated well. The tissue from the OR was sent for gram stain and culture and pathology. Wound cultures from the OR grew Staph aureus but susceptibility report was still pending. She was treated with 6 days of IV Rocephin and discharged with oral dicloxacillin and bactrim x [address] Paris's recommendations. She was feeling well POD#2 and was hemodynamically stable for discharge 03/30/19 with instructions to follow up with Dr Lambert in 2 weeks as well as PCP. She was given instruction on her dressing changes. Blood cultures were final and negative at discharge. Wound culture from the OR still pending sensitivities and will be monitored after discharge. Consultations: Dr Lambert and Veda De León NP - Orthopedic Surgery Dr Paris - Infectious Disease Dr Osman - General Surgery (2) Sepsis: Qualifiers: Sepsis type: sepsis due to unspecified organism Sepsis acute organ dysfunction status: unspecified Qualified Code(s): A41.9 - Sepsis, unspecified organism Code(s): A41.9 - Sepsis, unspecified organism Status: Acute Assessment and Plan: Resolved. Evident by leukocytosis and lactic acidosis on admission. Suspected source was osteomyelitis. Blood cultures are negative. (3) Cellulitis of second toe of left foot: Code(s): L03.032 - Cellulitis of left toe Status: Acute Assessment and Plan: See above. (4) Asthma: Qualifiers: Asthma severity: mild Asthma persistence: intermittent Asthma complication type: uncomplicated Qualified Code(s): J45.20 - Mild intermittent asthma, uncomplicated Code(s): J45.909 - Unspecified asthma, uncomplicated Status: Acute Assessment and Plan: Stable. No evidence of respiratory distress. Albuterol PRN. DS: Summary Time Spent with Patient Time attestation: Total time spent providing and/or coordinating discharge services: 45 minutes Exam Narrative: Exam Narrative: General: Female resting supine in bed in no acute distress. HEENT: Normocephalic, EOMI, oral mucosa moist. Cardiovascular: Rate and rhythm regular. Respiratory: Lungs clear to auscultation all poe. Non-labored breathing. Abdomen: Soft, protuberant, non-tender, bowel sounds present. Extremities: Left foot dressing intact. Left lower extremity does not appear edematous. Left lower extremity neurovascularly intact proximal to the surgical site. Neuro: No focal neurological deficits. Speech is clear. DS: Data Data Completed and Pending Completed studies during hospitalization: Pending at discharge 03/28/19 12:13 Surgical [PTH] Routine Imaging Radiologist's impression: 03/24/19 XR toe 2nd Left: IMPRESSION: Erosions of tuft of second distal phalanx, consistent with osteomyelitis. Discharge Plan Discharge Attending physician on discharge: Kerrie Andres Consulting providers: Antonio Lambert Discharging Clinician: Elida Gutierrez
== END 2019-03-30 17:00 | disposition home or self-care (01) | DRG 710 ==
PROVIDERS: Orthopaedic Surgery; Physician Assistant; Admitting Provider Family Medicine; PCP Nurse Practitioner Family; Visit Provider Family Medicine
PROC: 0Y6S0Z2 Detachment at Left 2nd Toe, Mid, Open Approach (ICD-10-PCS; principal; 2019-03-28 15:00)
DX: A41.9 Sepsis, unspecified organism (principal); M86.672 Other chronic osteomyelitis, left ankle and foot; L97.529 Non-pressure chronic ulcer of other part of left foot with unspecified severity; Z68.41 Body mass index [BMI] 40.0-44.9, adult; L03.032 Cellulitis of left toe; E78.5 Hyperlipidemia, unspecified; M79.7 Fibromyalgia; M19.90 Unspecified osteoarthritis, unspecified site; E55.9 Vitamin D deficiency, unspecified; E28.2 Polycystic ovarian syndrome; Z79.891 Long term (current) use of opiate analgesic; F31.9 Bipolar disorder, unspecified; G89.29 Other chronic pain; F17.210 Nicotine dependence, cigarettes, uncomplicated; E66.01 Morbid (severe) obesity due to excess calories; G62.9 Polyneuropathy, unspecified; M20.42 Other hammer toe(s) (acquired), left foot; J45.20 Mild intermittent asthma, uncomplicated; B95.62 Methicillin resistant Staphylococcus aureus infection as the cause of diseases classified elsewhere
CPT/HCPCS: 36415; 80048; 80053; 82607; 82746; 83036; 83605; 85025; 85027; 85055; 85610; 85730; 86140; 87070; 87147; 87186; 87205; 88305; 88311; 96361; 96365; 96366; 96367; 96372; 96375; A9270; G0378; G0379; J0131; J0696; J1100; J2250; J2270; J2405; J2704; J3010; J3370; J3420; J7030; J7120